=== PATIENT | female | born 1955 | race Caucasian/White ===

== ENCOUNTER 2020-04-07 15:39 | Outpatient (CLI) | payer OTHER, SELFPAY ==
--- NOTE | ~2020-04-07 | XR_ITS ---
XR chest 2V DATE: 04/07/2020 16:10 INDICATION: Shortness of breath, dyspnea. Mid chest pain. History of cardiomyopathy. TECHNIQUE: PA and lateral views COMPARISON: 08/10/2007 2 view chest FINDINGS: Bilateral hyperinflation. No pulmonary infiltrate or consolidation, pleural effusion or pul monary vascular congestion or pneumothorax. Mild bilateral apical capping. Normal heart size. Mild aortic tortuosity. No hilar or mediastinal enlargement. Status post lower anterior cervical spine surgical fusion. Diffuse osteopenia. IMPRESSION: Bilateral hyperinflation; no active cardiopulmonary disease Reviewed, dictated and finalized at location A.
[2020-04-07 16:23] LABS: Basophils Percent Auto 0.6 % (0.2-1.2); Eosinophils Absolute Auto 0.3 K/mm3 (0-0.3); Hematocrit 40.9 % (37.0-47.0); Hemoglobin 13.8 g/dL (12.0-15.0); Immature Granulocyte Absolute 0.01 K/mm3 (0.00-0.031); Immature Granulocyte Percent A 0.1 % (0-0.5); Lymphocytes Absolute Auto 2.88 K/mm3 (0.9-3.2); Lymphocytes Percent Auto 40.8 % (18.3-44.2); Mean Corpuscular HGB Conc 33.7 g/dl (32-36); Mean Corpuscular Hemoglobin 30.9 pg (26-34); Mean Corpuscular Volume 91.5 fl (80-100); Mean Platelet Volume 8.9 fl (7.4-10.4); Monocytes Absolute Auto 0.5 K/mm3 (0.1-0.6); Monocytes Percent Auto 7.1 % (2.6-8.5); Neutrophils Absolute Auto 3.4 K/mm3 (1.3-6.7); Neutrophils Percent Auto 47.4 % (45.5-73.1); Platelet Count Result 354 k/mm3 (150-375); Red Blood Count 4.47 M/mm3 (4.2-5.4); Red Cell Distribution Width 14.5 % (11.5-14.5); White Blood Count 7.1 K/mm3 (4.5-10.0)
[2020-04-07 16:37] LABS: Alanine Aminotransferase 19 U/L (4-35); Albumin Level 4.6 g/dL (3.5-5.1); Alkaline Phosphatase 57 U/L (38-126); Aspartate Amino Transferase 29 U/L (14-36); Bilirubin,Total 0.5 mg/dL (0.2-1.3); Blood Urea Nitrogen 8 mg/dL (7-17); Calcium 9.7 mg/dL (8.4-10.2); Carbon Dioxide 28 mmol/L (22-30); Chloride 103 mmol/L (98-107); Estimated Glomerular Filt Rate > 60; Glucose 94 mg/dL (65-105); Potassium 4.6 mmol/L (3.4-5.0); Sodium 135 mmol/L (137-145)
[2020-04-07 16:44] LABS: NT Pro B Type Natriuretic Pept 182 PG/ML (5-100)
== END 2020-04-07 15:40 | disposition home or self-care (01) ==
PROVIDERS: PCP Internal Medicine; Visit Provider Nurse Practitioner Adult Health
DX: R07.9 Chest pain, unspecified (principal); R06.02 Shortness of breath
CPT/HCPCS: 36415; 71046; 80053; 83880; 85025

== ENCOUNTER 2020-05-16 09:18 | Outpatient (CLI) | payer OTHER, SELFPAY ==
--- NOTE | ~2020-05-16 | DEXA_ITS ---
Bone Density Report Name: Magnolia Sigala Age: 65 Sex: Female Ethnicity: White Date of : 1955 Indication: postmenopausal; height loss; hysterectomy; Referring Provider: Tayla Morton Study: Bone densitometry was performed. Exam Date: May 16, 2020 Accession number: [id number] Bone Density: Region BMD T-score Z-score Classification AP Spine (L1-L4) 0.868 -1.6 0.0 Osteopenia Femoral Neck (Left) 0.690 -1.4 0.0 Osteopenia Total Hip (Left) 0.761 -1.5 -0.4 Osteopenia Total Hip Bilateral Avg 0.752 -1.6 -0.5 Osteopenia Femoral Neck (Right) 0.638 -1.9 -0.5 Osteopenia Total Hip (Right) 0.742 -1.6 -0.5 Osteopenia World Health Organization criteria for BMD impression classify patients as: Normal (T-score at or above -1.0), Osteopenia (T-score between -1.0 and -2.5), or Osteoporosis (T-score at or below -2.5). 10-year Fracture Risk(1): Major Osteoporotic Fracture 8.6% Hip Fracture 1.9% Reported Risk Factors: [place] (), Neck BMD=0.638, BMI=19.6, smoking (1) FRAX(R) Version 3.08. Fracture probability calculated for an untreated patient. Fracture probability may be lower if the patient has received treatment. Clinical Information Provided by Patient: Smokes Has used the following medications: HRT (i.e. estrogen/hormone therapy) Has the following medical conditions: Hysterectomy Patient maximum height was 68 Menopause Age: 45 Drinks caffeinated beverages Onset of menses at age 15 Number of children 1 Impression: The patient has low bone mass, based on the Right Femoral Neck T-score. The patient has an estimated ten-year risk of hip fracture of 1.9% and an estimated ten-year risk of major fracture of 8.6%, based on the WHO FRAX algorithm. The patient has risk factors, including: smoking. Discussion: BONE DENSITY IS LOW AT ONE OR MORE SKELETAL SITES. This patient's lowest T-score is low at one or more skeletal sites. It meets the World Health Organization's (WHO) criteria for ?low bone mass? (T-score between -1.0 and -2.5). The patient's 10-year risk of fracture as calculated by FRAX is less than the threshold where pharmacological therapy is recommended by the National Osteoporosis Foundation (NOF). However, all treatment decisions require clinical judgment and consideration of individual patient factors, including patient preferences, comorbidities, previous drug use, risk factors not captured in the FRAX model (e.g., frailty, falls, vitamin D deficiency, increased bone turnover, interval significant decline in bone density) and possible under or overestimation of fracture risk by FRAX. The patient should follow a healthful lifestyle (good nutrition with adequate calcium and vitamin D, and appropriate weight-bearing exercise). Follow-Up: Consider repeating this study in 2 to 3 years to reasses
--- NOTE | ~2020-05-16 | MM_ITS ---
EXAMINATION: MM screening [facility] BI w barry HISTORY: Screening mammogram TECHNIQUE: Craniocaudal and mediolateral oblique 3-D tomosynthesis images were obtained and synthetic 2-D images were generated. CAD analysis was submitted and interpreted. COMPARISON: 03/17/2019, 03/09/2018, 03/07/2017 BREAST PARENCHYMAL COMPOSITION: The breasts are extremely dense, which lowers the sensitivity of mamm ography. FINDINGS: There is no evidence of suspicious mass, calcification, or architectural distortion to sugg est malignancy in either breast. There has been no suspicious interval change. IMPRESSION: 1. No mammographic evidence of malignancy. 2. Recommend routine screening mammography in one year. BI-RADS Category 1: Negative Reviewed, dictated and finalized at location A.
== END 2020-05-16 09:19 | disposition home or self-care (01) ==
LOC: ANHIMG 09:20
PROVIDERS: PCP Internal Medicine; Visit Provider Obstetrics & Gynecology
DX: Z12.31 Encounter for screening mammogram for malignant neoplasm of breast (principal); Z78.0 Asymptomatic menopausal state; M85.89 Other specified disorders of bone density and structure, multiple sites
CPT/HCPCS: 77063; 77067; 77080

== ENCOUNTER 2021-05-22 10:19 | Outpatient (CLI) | payer OTHER, SELFPAY ==
--- NOTE | ~2021-05-22 | MM_ITS ---
EXAMINATION: MM screening [facility] BI w barry HISTORY: Screening TECHNIQUE: Craniocaudal and mediolateral oblique 3-D tomosynthesis images were obtained and synthetic 2-D images were generated. CAD analysis was submitted and interpreted. COMPARISON: Comparison to multiple prior studies sequentially, with oldest reviewed study dated 02/10. BREAST PARENCHYMAL COMPOSITION: The breasts are extremely dense, which lowers the sensitivity of mamm ography. FINDINGS: There is no evidence of suspicious mass, calcification, or architectural distortion to sugg est malignancy in either breast. There has been no suspicious interval change. IMPRESSION: 1. No mammographic evidence of malignancy. 2. Recommend routine screening mammography in one year. BI-RADS Category 1: Negative Reviewed, dictated and finalized at location A.
== END 2021-05-22 10:20 | disposition home or self-care (01) ==
LOC: ANHIMG 10:26
PROVIDERS: PCP Internal Medicine; Visit Provider Obstetrics & Gynecology
DX: Z12.31 Encounter for screening mammogram for malignant neoplasm of breast (principal)
CPT/HCPCS: 77063; 77067

== ENCOUNTER 2021-08-16 09:30 | Outpatient (CLI) | payer OTHER, SELFPAY ==
--- NOTE | ~2021-08-16 | XR_ITS ---
EXAMINATION: XR barium swallow modified EXAM DATE: 08/16/2021 10:07 INDICATION: Dysphagia. TECHNIQUE: Modified barium esophagram was performed by speech pathologist with radiologist Dr. Sean Kulkarni present to administered fluoroscopy. Speech pathologist administered barium in varying consis tencies as per speech pathologist documentation. This was recorded on tape. There was total fluorosc opic time of 0.9 minutes. The DAP for this procedure was 0.6 Gycm2. A total of 2 images sent to PAC S from the exam. FINDINGS: Oral stage: Adequate function. Pharyngeal phase: Adequate function. Laryngeal penetration: None. Aspiration: None. Laryngeal sensitivity: Present. IMPRESSION: Patient tolerated oral feedings in the upright position. Please refer to speech patholo gist findings and specific feeding recommendations. Reviewed, dictated and finalized at location A. IMPRESSION: Patient tolerated oral feedings in the upright position. Please r efer to speech pathologist findings and specific feeding recommendations.
--- NOTE | 2021-08-17 16:15 | STOPEVAL ---
MODIFIED BARIUM SWALLOW EVALUATION: Thank you for referring Magnolia Sigala to [facility].? Attending Provider: Aleyda Coreas Outpatient Past Medical History Past Medical History Source of Past Medical History Patient Gastrointestinal History Hx Gastroesophageal Reflux Disease Yes: on omeprazole Musculoskeletal History Hx Spinal Surgery Yes: hardware exhibited at C6/ 7;disc repair 20 years ago Prior Level of Function Prior Swallow Level Prior Intake Method Oral Prior Diet Regular (Level 7 Diet) Prior Liquid Consistency Thin (Level 0 Diet) Prior Cognition/Communication Prior Communication Level No Impairment Prior Cognitive Function Able to Function Independently Modified Barium Swallow Evaluation Recent Swallowing History Reports Dysphagia Yes: feels like its not going down / swollen throat ; denies choking Onset of Dysphagia 1 month Duration of Dysphagia 1 month Other Factors Impacting Dysphagia Head/Neck Surgery History of Pneumonia No Reported Difficult Consistencies Solids Intake Method Prior to Swallow Oral Evaluation Diet Prior to Swallow Evaluation Regular, Level 7 Liquid Consistency Prior to Swallow Thin (0) Evaluation Consistency Solid Consistency Method of Presentation Spoon Oral Preparatory Symptoms Within Functional Limits Oral Phase Symptoms Within Functional Limits Pharyngeal Phase Symptoms Within Functional Limits Severity of Vallecular Residue None - 0% No Residue Severity of Pyriform Sinus Residue None - 0% No Residue 8 Point Laryngeal Penetration-Aspiration Material Does Not Enter Airway Scale Cervical/Esophageal Symptoms Within Functional Limits Pureed Consistency Oral Preparatory Symptoms Within Functional Limits Oral Phase Symptoms Within Functional Limits Pharyngeal Phase Symptoms Within Functional Limits Severity of Vallecular Residue Trace - 1-5 % Trace Coating of the Mucosa Severity of Pyriform Sinus Residue Trace - 1-5 % Trace Coating of the Mucosa 8 Point Laryngeal Penetration-Aspiration Material Does Not Enter Airway Scale Pharyngeal Phase Comments the minimal pharyngeal residual was cleared with dry swallow Cervical/Esophageal Symptoms Esophageal/Pharyngeal Backflow Thin Uncontrolled 1 Other Amount cup and straw both used in testing thin liquids Oral Preparatory Symptoms Within Functional Limits Oral Phase Symptoms Within Functional Limits Pharyngeal Phase Symptoms Within Functional Limits Severity of Vallecular Residue None - 0% No Residue Severity of Pyriform Sinus Residue
== END 2021-08-16 09:31 | disposition home or self-care (01) ==
LOC: ANHIMG 09:33
PROVIDERS: PCP Internal Medicine
DX: R13.10 Dysphagia, unspecified (principal)
CPT/HCPCS: 92611

== ENCOUNTER 2022-06-12 15:26 | Outpatient (CLI) | payer OTHER, SELFPAY ==
--- NOTE | ~2022-06-12 | MM_ITS ---
EXAMINATION: MM screening [facility] BI w barry HISTORY: Screening mammogram TECHNIQUE: Craniocaudal and mediolateral oblique 3-D tomosynthesis images were obtained and synthetic 2-D images were generated. CAD analysis was submitted and interpreted. COMPARISON: 05/22/2021, 05/16/2020, 04/17/2019 BREAST PARENCHYMAL COMPOSITION: The breasts are extremely dense, which lowers the sensitivity of mamm ography. FINDINGS: There is no suspicious mass, calcification, or architectural distortion to suggest malignan cy in either breast. There has been no suspicious interval change. IMPRESSION: 1. No mammographic evidence of malignancy. 2. Recommend routine screening mammography in one year. BI-RADS Category 1: Negative Reviewed, dictated and finalized at location A.
== END 2022-06-12 15:27 | disposition home or self-care (01) ==
PROVIDERS: PCP Internal Medicine; Visit Provider Obstetrics & Gynecology
DX: Z12.31 Encounter for screening mammogram for malignant neoplasm of breast (principal)
CPT/HCPCS: 77063; 77067

== ENCOUNTER 2023-04-24 00:34 | Day surgery (SDC) | payer OTHER, SELFPAY ==
[2023-04-15 13:27] VITALS: BMI 19.1
--- NOTE | 2023-04-24 09:01 | WPDHPUPDATE1 ---
History and Physical Update Update Date/Time: 04/24/23 09:01 History and Physical has been reviewed, including an updated exam of the patient. There are NO changes in the patient's condition. Risks, benefits, and alternatives have been discussed and questions answered. Patient agrees to proceed with procedure.
[2023-04-24 09:02] VITALS: BP 115/71; PULSE 81; RESP 18; TEMP 36.4; O2SAT 100
[2023-04-24] MEDS: LACTATED RINGERS 1,000 ML 150 ML IV CONT (09:09)
--- NOTE | 2023-04-24 09:45 | WPDANESEPPF ---
Anes - Initial Pre Proc Eval Procedure: Operation Date: 04/24/23 10:00 Proposed Procedures p Esophagogastroduodenoscopy - Sebas Almazan MD Date/Time: 04/24/23 09:45 Surgeon: Sebas Almazan MD Pre Op Diagnosis: dysphagia, GERD Patient Data Age: 68 Gender: F Height: 1.73 m Weight: 57.1 kg Last Vital Signs Temp 97.5 F L 04/24/23 09:02 Pulse 81 04/24/23 09:02 Resp 18 04/24/23 09:02 BP 115/71 04/24/23 09:02 Pulse Ox 100 04/24/23 09:02 O2 Del Method Room Air 04/24/23 09:02 Allergies Allergy/AdvReac Type Severity Reaction Status Date / Time Penicillins Allergy Unknown Dizziness Verified 04/24/23 09:00 Home Medications Medication Instructions Recorded Confirmed Type zinc 50 mg tablet 50 mg PO DAILY 04/14/20 04/15/23 History omega-3 fatty acids 1,000 mg 1,000 mg PO DAILY 04/17/20 04/15/23 History capsule (Fish Oil Concentrate) cholecalciferol (vitamin D3) 25 25 mcg PO DAILY 04/23/21 04/15/23 History mcg (1,000 unit) capsule bupropion HCl 150 mg tablet,12 hr 150 mg PO BID #60 tabs 12/06/22 04/15/23 Rx sustained-release estradiol 1 mg tablet 1 mg PO DAILY #90 tabs 03/04/23 04/15/23 Rx calcium 500 mg tablet 500 mg PO DAILY 04/15/23 04/15/23 History carvedilol 12.5 mg tablet 12.5 mg PO Q12H 04/15/23 04/24/23 History dicyclomine 10 mg capsule 10 mg PO BID 04/15/23 04/15/23 History lisinopril 5 mg tablet 5 mg PO DAILY 04/15/23 04/15/23 History obafyoso-ucn-qcvgd ac 400 1 tablet PO DAILY 04/15/23 04/15/23 History mcg-calcium carb 500 mg-vit K1 20 mcg tablet omeprazole 40 mg capsule,delayed 40 mg PO DAILY #90 caps 04/17/23 Rx release Patient hx anesthesia problems: none Family hx anesthesia problems: none Results Review: All pre-operative results and documents have been reviewed as part of the pre-operative evaluation. [facility] Past Medical History Medical History Cardiovascular complication of procedure Diverticulitis Family history of other specified malignant neoplasm Surgical History Surgical History H/O hemorrhoidectomy History of gynecologic surgery SOPHIE/BSO - prolapse/bladder tie History of sinus surgery Family History Family History Mother Patient's mother is Family history of osteoporosis Family history of cardiovascular disease Father Patient's father is Diabetes mellitus Family history of aortic aneurysm Sibling Family history of arthritis Other Cerebrovascular accident Family history of malignant neoplasm Social History Social History Smoking packs per day: 0.5 Smoking cigarettes per day: 10.0 Years smoked: 45 Smoking pack-years: 22.50 Smoking status: Current every day smoker Tobacco type: cigarettes Second hand tobacco smoke exposure: No Smoking end date: 11/03/14 Alcohol intake: current Drinks per week: 2 Substance use: never Substance use type: does not use Living arrangements: alone Occupation/Education: retired Gender identity (if verbalized by the patient): Female Sexual Orientation (if Verbalized by the Patient): Straight or Heterosexual Spiritual care concerns: No Anes - Eval Final PreProcedure Day of Procedure 04/24/23 09:45 Patient weight: normal Heart: regular rate and rhythm Lungs: clear to auscultation Airway: Mallampati scale class II Neurological: alert and oriented Last oral intake: >/= 8 hours ASA classification: III Emergent: no Anesthetic plan: proceed Anesthesia type and monitoring: general GIVS and standard monitoring Results Review: All pre-operative results and documents have been reviewed as part of the pre-operative evaluation. Informed Consent: The patient's anesthetic plan and its attendant risks
[2023-04-24 09:57] VITALS: BP 110/64; PULSE 78; RESP 22; TEMP 36.4; O2SAT 100
[2023-04-24 10:07] VITALS: BP 117/78; PULSE 64; RESP 18; TEMP 36.4; O2SAT 100
[2023-04-24 10:17] VITALS: BP 122/69; PULSE 62; RESP 18; TEMP 36.4; O2SAT 100
== END 2023-04-24 10:20 | disposition home or self-care (01) ==
PROVIDERS: PCP Internal Medicine; Visit Provider Internal Medicine Gastroenterology
PROC: 0DJ08ZZ Inspection of Upper Intestinal Tract, Via Natural or Artificial Opening Endoscopic (ICD-10-PCS; CPT 43235; principal; 2023-04-24 10:00)
DX: R13.10 Dysphagia, unspecified (principal); K21.9 Gastro-esophageal reflux disease without esophagitis; F17.210 Nicotine dependence, cigarettes, uncomplicated
CPT/HCPCS: 43239; 43450; 87081; J2704; J7120

== ENCOUNTER 2023-05-12 11:24 | Emergency (ER) | payer OTHER, SELFPAY ==
[2023-05-12] VITALS (27 sets, daily range): BP systolic 104–144; BP diastolic 53–93; PULSE 55–75; RESP 12–26; TEMP 36.9; O2SAT 95–100
--- NOTE | ~2023-05-12 | XR_ITS ---
EXAMINATION: XR chest 2V DATE: 05/12/2023 11:57 INDICATION: Chest pain TECHNIQUE: PA and lateral views of the chest are obtained. COMPARISON: 04/07/2020 FINDINGS: The lungs are free of acute opacities. No pleural effusion or pneumothorax. The cardiomedia stinal silhouette is normal. There is mild thoracic spondylosis. There is partially imaged humeral pl ate and screw fixation. There are also partially imaged changes of anterior fusion in the lower cervi shilpi spine. IMPRESSION: 1. No acute cardiopulmonary abnormality. Reviewed, dictated and finalized at location B.
--- NOTE | 2023-05-12 11:32 | ECG_ITS ---
Measurements Intervals [place] Rate: 63 P: 52 SD: 180 QRS: 6 QRSD: 95 T: 60 QT: 395 QTc: 407 Interpretive Statements SINUS RHYTHM ANTEROSEPTAL INFARCT, AGE INDETERMINATE BORDERLINE ST ABNORMALITY- HIGH LATERAL CARLOS ABNORMAL ECG NO PREVIOUS ECG AVAILABLE FOR COMPARISON Electronically Signed On 05-12-2023 11:37:53 CDT by Madi Kang D.O.
[2023-05-12] MEDS: ASPIRIN 81 MG CHEWABLE TABLET 324 MG PO (11:44)
--- NOTE | 2023-05-12 11:45 | PC.NURSE ---
only gave 3 81 mg baby aspirin per MD stewart because patient took 81mg prior to arrival.
[2023-05-12 11:46] LABS: Basophils Absolute Auto 0.1 K/mm3 (0.0-0.1); Basophils Percent Auto 0.7 % (0.2-1.2); Eosinophils Absolute Auto 0.2 K/mm3 (0-0.3); Eosinophils Percent Auto 2.7 % (0-4.4); Hematocrit 38.6 % (37.0-47.0); Hemoglobin 13.1 g/dL (12.0-15.0); Immature Granulocyte Absolute 0.02 K/mm3 (0.00-0.031); Immature Granulocyte Percent A 0.3 % (0-0.5); Lymphocytes Absolute Auto 1.83 K/mm3 (0.9-3.2); Lymphocytes Percent Auto 24.9 % (18.3-44.2); Mean Corpuscular HGB Conc 33.9 g/dl (32-36); Mean Corpuscular Hemoglobin 31.8 pg (26-34); Mean Corpuscular Volume 93.7 fl (80-100); Mean Platelet Volume 8.7 fl (7.4-10.4); Monocytes Absolute Auto 0.5 K/mm3 (0.1-0.6); Monocytes Percent Auto 6.5 % (2.6-8.5); Neutrophils Absolute Auto 4.8 K/mm3 (1.3-6.7); Neutrophils Percent Auto 64.9 % (45.5-73.1); Platelet Count Result 328 k/mm3 (150-375); Red Blood Count 4.12 M/mm3 (4.2-5.4); Red Cell Distribution Width 14.4 % (11.5-14.5); White Blood Count 7.4 K/mm3 (4.5-10.0)
[2023-05-12 11:53] LABS: Alanine Aminotransferase 18 U/L (6-35); Albumin Level 4.2 g/dL (3.5-5.1); Alkaline Phosphatase 47 U/L (38-126); Anion Gap 3 mmol/L (8-16); Aspartate Amino Transferase 29 U/L (14-36); Bilirubin,Total 0.5 mg/dL (0.2-1.3); Blood Urea Nitrogen 11 mg/dL (7-17); Calcium 9.3 mg/dL (8.4-10.2); Carbon Dioxide 29 mmol/L (22-30); Chloride 104 mmol/L (98-107); Estimated CRCL calculation 70 ml/min; Estimated Glomerular Filt Rate > 60; Glucose 97 mg/dL (65-110); Lipase 144 U/L (23-300); Potassium 4.2 mmol/L (3.4-5.0); Sodium 136 mmol/L (137-145)
[2023-05-12 11:55] LABS: INR 0.9; Partial Thromboplastin Time 27.1 SECONDS (22.3-36.8); Prothrombin Time 12.7 Seconds (11.1-14.7)
[2023-05-12 12:04] LABS: Troponin I < 0.012 ng/mL (0.000-0.034)
[2023-05-12] MEDS: FAMOTIDINE 20 MG TABLET PO (12:36)
[2023-05-12] MEDS: BELLADONNA ALK/PHENOB ELIX 10 ML, MAG HYDROX/ALUMINUM HYD/SIMETH 30 ML, LIDOCAINE HCL 2... PO (12:37)
--- NOTE | 2023-05-12 13:34 | ED.CHESTPAIN ---
HPI - Chest Pain General Chief Complaint: Chest Pain Stated Complaint: chest pressure, nausea, left arm numbness Time Seen by Provider: 05/12/23 11:52 History of Present Illness HPI narrative: This is a 68-year-old female with past history of cardiomyopathy, who presents to the emergency department complaining of chest pressure, nausea and left arm numbness. She states the pressure is also related to the burning sensation, consistent with prior episodes of GERD and has not changed in intensity. She states nausea and some left arm numbness appeared in the past week. Patient denies any known aggravating or alleviating factors, shortness of breath or loss of consciousness. Related Data Home Medications Medication Instructions Recorded Confirmed zinc 50 mg tablet 50 mg PO DAILY 04/14/20 04/29/23 omega-3 fatty acids 1,000 mg 1,000 mg PO DAILY 04/17/20 04/29/23 capsule (Fish Oil Concentrate) cholecalciferol (vitamin D3) 25 25 mcg PO DAILY 04/23/21 04/29/23 mcg (1,000 unit) capsule calcium 500 mg tablet 500 mg PO DAILY 04/15/23 04/29/23 carvedilol 12.5 mg tablet 12.5 mg PO Q12H 04/15/23 04/29/23 dicyclomine 10 mg capsule 10 mg PO BID 04/15/23 04/29/23 lisinopril 5 mg tablet 5 mg PO DAILY 04/15/23 04/29/23 dhnemmbw-hus-injhi ac 400 1 tablet PO DAILY 04/15/23 04/29/23 mcg-calcium carb 500 mg-vit K1 20 mcg tablet Allergies Allergy/AdvReac Type Severity Reaction Status Date / Time Penicillins Allergy Unknown Dizziness Verified 05/12/23 11:39 Review of Systems Review of Systems: CONSTITUTIONAL: Denies fever, chills, or sweats. CARDIOVASCULAR: Burning midline chest pain denies palpitations, or edema. RESPIRATORY: Denies cough or dyspnea. GASTROINTESTINAL: Nausea denies abdominal pain, vomiting, or diarrhea. GENITOURINARY: Denies dysuria or hematuria. SKIN: Denies rash or itching. MUSCULOSKELETAL: Denies back pain, joint pain, or myalgia. NEUROLOGIC: Chronic left arm numbness denies headache, dizziness, or weakness. PSYCHIATRIC: Denies anxiety or depression. [facility] Past Medical History Medical History (Updated 05/12/23 @ 15:05 by Giorgio Stallworth MD) Cardiovascular complication of procedure Diverticulitis Family history of other specified malignant neoplasm Surgical History Surgical History H/O endoscopy H/O hemorrhoidectomy History of gynecologic surgery SOPHIE/BSO - prolapse/bladder tie History of sinus surgery Family History Family History Mother Patient's mother is Family history of osteoporosis Family history of cardiovascular disease Father Patient's father is Diabetes mellitus Family history of aortic aneurysm Sibling Family history of arthritis Other Cerebrovascular accident Family history of malignant neoplasm Social History Social History Smoking packs per day: 0.5 Smoking cigarettes per day: 10.0 Years smoked: 45 Smoking pack-years: 22.50 Smoking status: Current every day smoker Tobacco type: cigarettes Second hand tobacco smoke exposure: No Smoking end date: 11/03/14 Alcohol intake: current Drinks per week: 2 Substance use: never Substance use type: does not use Lack of Transportation: No Lack of Food: Never True Current Housing: I Have Housing Concerned About Future Housing: No Difficulty Paying Gas/Electric Bills: No Difficulty Paying for Meds: No Currently Unemployed: No Education: Associate Degree Difficulty w/ Childcare or Family Care: No Living arrangements: alone Occupation/Education: retired Gender identity (if verbalized by the patient): Female Sexual Orientation (if Verbalized by the Patient): Straight or Heterosexual Spiritual care concerns: No Exam Narrative: GENERAL: Well-developed, well-nourished, and in no acute d
[2023-05-12 14:21] LABS: NT Pro B Type Natriuretic Pept 429 pg/mL (19.9-100)
[2023-05-12 14:49] LABS: Troponin I < 0.012 ng/mL (0.000-0.034)
== END 2023-05-12 15:15 | disposition home or self-care (01) ==
PROVIDERS: Emergency Provider Preventive Medicine Aerospace Medicine; PCP Internal Medicine
DX: K21.9 Gastro-esophageal reflux disease without esophagitis (principal); R07.89 Other chest pain; F17.210 Nicotine dependence, cigarettes, uncomplicated
CPT/HCPCS: 36415; 71046; 80053; 83690; 83880; 84484; 85025; 85610; 85730; 93005; 99284; A9270

== ENCOUNTER → 2023-08-08 12:27 | Outpatient (CLI) | payer OTHER, SELFPAY ==
--- NOTE | ~2023-08-08 | MM_ITS ---
EXAMINATION: MM screening [facility] BI w barry HISTORY: Screening mammogram TECHNIQUE: Craniocaudal and mediolateral oblique 3-D tomosynthesis images were obtained and synthetic 2-D images were generated. CAD analysis was submitted and interpreted. COMPARISON: 06/12/2022, 05/22/2021, 05/16/2020 BREAST PARENCHYMAL COMPOSITION: The breasts are extremely dense, which lowers the sensitivity of mamm ography. FINDINGS: No suspicious mass, calcification, or architectural distortion are identified in either carole ast to suggest malignancy. There has been no suspicious interval change. IMPRESSION: 1. No mammographic evidence of malignancy. 2. Recommend routine screening mammography in one year. BI-RADS Category 1: Negative Reviewed, dictated and finalized at location A.
--- NOTE | ~2023-08-08 | DEXA_ITS ---
Bone Density Report Name: UZIEL FOSTER Age: 68 Sex: Female Ethnicity: White Date of : 1955 Indication: postmenopausal; screening for osteoporosis; hysterectomy; Referring Provider: Tayla Morton Study: Bone densitometry was performed. Exam Date: August 08, 2023 Accession number: [id number] Bone Density: Region BMD T-score Z-score Classification AP Spine (L1-L4) 0.890 -1.4 0.4 Osteopenia Femoral Neck (Left) 0.690 -1.4 0.2 Osteopenia Total Hip (Left) 0.763 -1.5 -0.2 Osteopenia Femoral Neck (Right) 0.654 -1.8 -0.2 Osteopenia Total Hip (Right) 0.732 -1.7 -0.4 Osteopenia Total Hip Mean 0.748 -1.6 -0.3 Osteopenia World Health Organization criteria for BMD impression classify patients as: Normal (T-score at or above -1.0), Osteopenia (T-score between -1.0 and -2.5), or Osteoporosis (T-score at or below -2.5). 10-year Fracture Risk(1): Major Osteoporotic Fracture 8.7% Hip Fracture 2.0% Reported Risk Factors: [place] (), Neck BMD=0.654, BMI=19.1, smoking (1) FRAX(R) Version 3.08. Fracture probability calculated for an untreated patient. Fracture probability may be lower if the patient has received treatment. Clinical Information Provided by Patient: Smokes Has used the following medications: HRT (i.e. estrogen/hormone therapy), Vitamin D, Calcium, MTV Has the following medical conditions: Hysterectomy Patient maximum height was 68.0 Menopause Age: 45 No regular weight bearing exercise Drinks caffeinated beverages Onset of menses at age 15 Number of children 1 Impression: The patient has low bone mass, based on the Right Femoral Neck T-score. The patient has an estimated ten-year risk of hip fracture of 2% and an estimated ten-year risk of major fracture of 8.7%, based on the WHO FRAX algorithm. The patient has risk factors, including: smoking. Discussion: BONE DENSITY IS LOW AT ONE OR MORE SKELETAL SITES. This patient's lowest T-score is low at one or more skeletal sites. It meets the World Health Organization's (WHO) criteria for ?low bone mass? (T-score between -1.0 and -2.5). The patient's 10-year risk of fracture as calculated by FRAX is less than the threshold where pharmacological therapy is recommended by the National Osteoporosis Foundation (NOF). However, all treatment decisions require clinical judgment and consideration of individual patient factors, including patient preferences, comorbidities, previous drug use, risk factors not captured in the FRAX model (e.g., frailty, falls, vitamin D deficiency, increased bone turnover, interval significant decline in bone density) and possible under or overestimation of fracture risk by FRAX. The patient should follow a healthful lifestyle (good nutrition with adequate calcium and vitamin D, and appropriate weight-bearing exer
== END ==
PROVIDERS: PCP Obstetrics & Gynecology; Visit Provider Obstetrics & Gynecology
DX: Z12.31 Encounter for screening mammogram for malignant neoplasm of breast (principal); M85.89 Other specified disorders of bone density and structure, multiple sites
CPT/HCPCS: 77063; 77067; 77080

== ENCOUNTER 2024-04-26 13:57 | Outpatient (CLI) | payer OTHER, SELFPAY ==
--- NOTE | ~2024-04-26 | XR_ITS ---
EXAMINATION: XR_[id number]_CR DATE: 04/26/2024 14:18 INDICATION: Left shoulder pain radiating to the fingers. TECHNIQUE: 4 views of cervical spine were obtained. COMPARISON: None. FINDINGS: There is kyphosis of cervical spine. There is 6 degrees levocurvature of cervicothoracic sp ine. Vertebral body heights are normal. There is moderately decreased disc height at C5-C6. There are changes of anterior fusion procedure at C6-C7 with healed interbody bone graft and anterior plate an d screws. There is multilevel aqoc-iw-zalfsvhm facet joint osteoarthritis. No central canal stenosis or prevertebral soft tissue swelling. IMPRESSION: 1. Moderate cervical spondylosis. 2. Anterior fusion procedure at C6-C7. Reviewed, dictated and finalized at location A.
--- NOTE | ~2024-04-26 | XR_ITS ---
EXAMINATION: XR shoulder LT min 2V DATE: 04/26/2024 14:18 INDICATION: Left shoulder pain. TECHNIQUE: 4 views of left shoulder were obtained. COMPARISON: None. FINDINGS: Bone alignment is normal. No fracture. There is mild osteoarthritis of glenohumeral joint a nd acromioclavicular joint. There are changes of anterior fusion procedure in cervical spine. IMPRESSION: 1. Mild polyarticular osteoarthritis. Reviewed, dictated and finalized at location A.
== END 2024-04-26 13:58 | disposition home or self-care (01) ==
PROVIDERS: PCP Internal Medicine; Visit Provider Internal Medicine
DX: M19.012 Primary osteoarthritis, left shoulder (principal); M47.892 Other spondylosis, cervical region; Z98.1 Arthrodesis status
CPT/HCPCS: 72040; 73030

== ENCOUNTER 2024-07-09 12:30 | Outpatient (RCR) | payer OTHER, SELFPAY ==
--- NOTE | 2024-05-19 17:40 | PTOPEVAL1 ---
Assessment and note entered by Heaven Jacobs, PT Evaluation Information Assessment Status Evaluation ICD-10 Condition Codes (PT) M25.511,M25.512 Subjective Information Pt. nicholas have been doing housework, renovations , painting and moving furniture around since moving to her house in October 2023. States she was feeling sore for a while but pain seem to persist in the L shoulder and started to radiate to L arm, recently noticing more of weakness and inability to lift heavy objects that started 3-4 months ago. Pt is L handed and reports is deliberately limiting her activities at home due to anticipating increased pain with movement. Reported Pain Level Pain Score 2: Self Report Additional Pain Score Comments morning stiffness; sore at the end of the day Assessment PT Clinical Summary Pt is a 69yo female patient who presents to therapy with L shoulder pain which radiates down to her L arm and hand. 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 Pt. demos increased tightness to B traps muscles L > R, ROM limitations to cervical spine, weakness and radicular symptoms to LUE down to the fingertips, gait affectation and significant reduction in functional mobility. She would greatly benefit from skilled PT to address deficits, reduce pain and improve quality of life. Plan of Care Interventions Electrical Stimulation,Hot Pack/Cold Pack,Manual Therapy,Mechanical Traction,Neuro Re-education, Patient/Caregiver Education,Therapeutic Activities, Therapeutic Exercise,Ultrasound PT Services Indicated Yes Treatment Frequency and 2x/wk x 10 visits Duration These treatments will address the objective and functional deficits as defined above. The patient will be advanced safely and appropriately in order for the patient to progress towards his/her prior level of function. Additional exercises will be introduced and as well as a comprehensive home exercise program upon discharge, if needed, ?to ensure carryover of functional gains achieved in the clinic. This treatment plan has been reviewed and agreement upon by the patient.
--- NOTE | 2024-05-19 17:41 | PTOPEVAL1 ---
Assessment and note entered by Heaven Jacobs, PT Evaluation Information Assessment Status Evaluation ICD-10 Condition Codes (PT) M25.511,M25.512 Subjective Information Pt. reports have been doing housework, renovations , painting and moving furniture around since moving to her house in October 2023. States she was feeling sore for a while but pain seem to persist in the L shoulder and started to radiate to L arm, recently noticing more of weakness and inability to lift heavy objects that started 3-4 months ago. Pt is L handed and reports is limiting her activities at home deliberately due to the pain. Reported Pain Level Pain Score 2: Self Report Additional Pain Score Comments morning stiffness; sore at the end of the day Assessment PT Clinical Summary Pt is a 69yo female patient who presents to therapy with L shoulder pain which radiates down to her L arm and hand. 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 Pt. demos increased tightness to B traps muscles L > R, ROM limitations to cervical spine, weakness and radicular symptoms to LUE down to the fingertips, gait affectation and significant reduction in functional mobility. She would greatly benefit from skilled PT to address deficits, reduce pain and improve quality of life. Plan of Care Interventions Electrical Stimulation,Hot Pack/Cold Pack,Manual Therapy,Mechanical Traction,Neuro Re-education, Patient/Caregiver Educati,Therapeutic Activities, Therapeutic Exercise,Ultrasound PT Services Indicated Yes Treatment Frequency and 2x/wk x 10 visits Duration These treatments will address the objective and functional deficits as defined above. The patient will be advanced safely and appropriately in order for the patient to progress towards his/her prior level of function. Additional exercises will be introduced and as well as a comprehensive home exercise program upon discharge, if needed, ?to ensure carryover of functional gains achieved in the clinic. This treatment plan has been reviewed and agreement upon by the patient.
--- NOTE | 2024-07-09 13:20 | PTOPDC ---
Assessment and note entered by Yesenia Merlos, PT Discharge Report Assessment Status Discharge ICD-10 Condition Codes (PT) M25.511,M25.512 Subjective Information shoulder is better; doing the exercises at home; am ready to be done with therapy. Reported Pain Level Pain Score Self Report Additional Pain Score Comments pain range in the past week 0-3/10; up to 3 with vacuuming; Assessment PT Clinical Summary [facility] has received a total of 11 PT sessions. Compared to the initial evaluation: pain range from 2-8/10 to 0-3/10; does not have any radicular pain into L UE; does not have any cervical pain and cervical ROM is WNL and without pain; increase strength of L shoulder: flexion with 5# hand weight and abduction with 4# hand weight x 5 reps through full ROM; able to carry 10# with L hand and walk 50'; education completed for HEP and posture/body mechanics. The goals were achieved. Discharge PT services. She is to continue with her HEP. Plan of Care PT Services Indicated No
== END 2024-07-09 14:12 | disposition home or self-care (01) ==
LOC: ANHPT 12:30
PROVIDERS: PCP Internal Medicine; Visit Provider Internal Medicine
DX: M25.512 Pain in left shoulder (principal)
CPT/HCPCS: 97035; 97110; 97140; 97161; 97530

== ENCOUNTER 2024-08-12 12:34 | Outpatient (CLI) | payer OTHER, SELFPAY ==
--- NOTE | ~2024-08-12 | MM_ITS ---
EXAMINATION: MM screening lance BI w barry HISTORY: Screening TECHNIQUE: Craniocaudal and mediolateral oblique 3-D tomosynthesis images were obtained and synthetic 2-D images were generated. CAD analysis was submitted and interpreted. COMPARISON: Comparison to multiple prior studies sequentially, with oldest reviewed study dated 05/2018. BREAST PARENCHYMAL COMPOSITION: Dense: The breasts are extremely dense, which lowers the sensitivity of mammography. FINDINGS: There is no evidence of suspicious mass, calcification, or architectural distortion to sugg est malignancy in either breast. There has been no suspicious interval change. IMPRESSION: 1. No mammographic evidence of malignancy. 2. Recommend routine screening mammography in one year. BI-RADS Category 1: Negative Reviewed, dictated and finalized at location B.
== END 2024-08-12 12:35 | disposition home or self-care (01) ==
LOC: MICIMG 12:35
PROVIDERS: PCP Obstetrics & Gynecology; Visit Provider Obstetrics & Gynecology
DX: Z12.31 Encounter for screening mammogram for malignant neoplasm of breast (principal)
CPT/HCPCS: 77063; 77067

== ENCOUNTER 2025-01-28 12:54 | Outpatient (CLI) | payer OTHER, SELFPAY ==
--- OUTSIDE RECORDS SUMMARY | 2025-01-28 13:04 | XMS_ITS | Encounter Summary ---
Author Organization [facility] Address [address] [place] [address] Care Team Providers Care French Professor Name Role Phone Jacek Thomas MD Primary Care Provider [phone] Jacek Thomas MD Primary Care Provider [phone] Encounter Details Date Type Department Care Team (Late st Contact Info) Description 01/03/2017 Orders Only [facility] ProviderVern MD [address] [place], [place] [id number] Social History Tobacco Use Types Packs/Day Years Used Date Smoking Tobacco: Every Day Alcohol Use Standard Drinks/Week Comments Yes 0 (1 standard drink = 0.6 oz pur e alcohol) Comments Unknown Sex and Gender Information Value Date Recorded Sex Assigned at Not on file Legal Sex Female 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 Historical Provider [facility] Final Result documented in this encounter Visit Diagnoses Not on filedocumented in this encounter Care Teams French Professor Relationship Specialty Start Date End Date Jacek Thomas MD [address] [place] [address] PCP - General 01/31/17 Jacek Thomas MD [address] [place] [address] PCP - General 05/25/15 01/30/17 documented as of this encounter
--- OUTSIDE RECORDS SUMMARY | 2025-01-28 13:04 | XMS_ITS | Continuity of Care Document ---
Author [facility] [address] [place] [id number] Phone Care Team Providers Care Labeler Name Role Phone Gian Duenas MD Unavailable Unavailable Allergies, Adverse Reactions, Alerts Substance Reaction Status Criticality PENICILLIN Active No Information Penicillins Active No Information Medications Medication Instructions Dosage Effective Dates (start - stop) Status Comments zinc 50 mg tablet take 1 tablet by ora l route every day - Active estradiol 1 mg tablet take 1 tablet by o ral route every day 1 MG - Active carvedilol 12.5 mg tablet take 1 tablet by oral route 2 times every day with food 12.5 MG - Active lisinopril 5 mg tablet take 1 tablet by oral route every day 5 MG - Active pantoprazole 40 mg tablet,delayed release take 1 tablet by oral route every day 40 MG - Active Viberzi 100 mg tablet take 1 tablet by o ral route 2 times every day 100 MG - Active Estradiol 0.01% (0.1 mg/g) Vaginal Cream insert (1G) by VAGINAL route every week 1 G - Active Omeprazole 10 mg Cap, Delayed Release take 2 capsule (20MG) by ORAL route every day before a meal 20 MG - Active Procedures Procedure Date No Charge Refraction After Cataract Laser Surgery Post-op Follow-up Visit No Charge Refraction After Cataract Laser Surgery Eye Exam & Treatment No Charge Refraction Post-op Follow-up Visit Post-op Follow-up Visit Remove Cataract, Insert Lens Laser Cataract SX Standard No Charge Refraction Post-op Follow-up Visit Post-op Follow-up Visit Remove Cataract, Insert Lens Laser Cataract SX Standard No Charge Optomap Fundus Photos 018 No Charge Refraction IOLMaster No Charge Orbscan IOLMaster Office/outpatient Visit, New SCODI, Anterior Segment Office/outpatient Visit, Est Office/outpatient Visit, Est Post-op Follow-up Visit Revise Two Eye Muscles Post-op Follow-up Visit Office/outpatient Visit, Est Advance Directives Directive Yes / No Effective Date File Name No Information Encounters Encounter Description Practice Location Reason(s) For Visit Diagnoses Date Provider Providers Copied on Encounter [facility], [address] [place] [address] [address], [place], [place], [id number], [place] tel:[phone] SEC Go BRITTON Professional No Information 0 Henrique Springer. [address] [place], [address], [place]. tel:[phone] [facility], [address], [place], [place], [address], [place] tel:[phone] SEC Go BRIT[place] Professional yag pc OD (chief complaint) Encounter for examination following surgeryOther secondary cataract, right eye 0 Henrique Springer. [address], [place], [place], [address], [place]. tel:[phone] Referring Provider: Martin Lai OD F, [address], [place], [address]. tel:[phone] [facility], [address], [place], [place], [address], [place] [phone] SEC [place] REBA Professional Complete Exam (chief complaint) Presence of intraocular lensOther secondary cataract, right eyeOther secondary cataract, left eyePunctate keratitis, bilateral Dec- 5-202 0 Henrique Springer. [address] [facility], [place], [place], [address], [place]. tel:[phone] Referring Provider: Martin Lai OD F, [address], [place], [address]. tel:[phone] [facility], [address], [place], [place], [id number], [place] [phone] SEC [place] REBA Professional 2 week s/p PCIOL w/LensAR (NEAR) (chief complaint) Encounter for examination following surgery 8 Roosevelt Reed. [address] [facility], [address], [place], [address], [place]. tel:[phone] Referring Provider: Martin Lai OD F, [address], [place], [address]. tel:[phone] [facility], [address], [place], [place], [address], [place] [phone] SEC [place] Professional 1 day p/o PCIOL w/ LensAR (chief complaint) Encounter for examination following surgery 0 8 Henrique Springer. [address] [facility], [place], [place], [address], [place]. tel:[phone] Referring Provider: Martin Lai OD F, [address], [place], [address]. tel:[phone] [facility], [address], [place], [place], [address], [place] [phone] [facility] No Information 8 Ara Esquivel. [address] [place] [address] [email or web address], [address], [place], [place], [address], [place]. tel:[phone] Referring Provider: Martin Lai OD F, [address], [place], [address]. tel:[phone] [facility], [address] [place] [address] [address], [place], [place], [address], [place] tel:[phone] SEC Go [place] Professional 2 week s/p PCIOL w/LensAR (chief complaint) Encounter for examination following surgery 8 Henrique Springer. [address] [place] [address] [address], [place], [place], [address], [place]. tel:[phone] Referring Provider: Martin Lai OD F, [address], [place], [address]. tel:[phone] [facility], [address] [place] [address] [address], [place], [place], [address], [place] tel:[phone] SEC [place] Professional Post-Op (chief complaint) No Information 8 Roosevelt BAH Brianna. [address] [facility], [place], [place], [facility], [place]. tel:[phone] Referring Provider: Martin Lai OD F, [address], [place], [address]. tel:[phone] [facility], [address] [place] [address] [address], [place], [place], [address], [place] tel:[phone] [place] [facility] No Information 8 Ara Esquivel. [address] [place] [address] [email or web address] [facility], [address], [place], [place], [address], [place]. tel:[phone] Referring Provider: Martin Lai OD F, [address], [place], [address]. tel:[phone] Office/outpa tient Visit, [facility], [address] [place] [address] [address], [place], [place], [address], [place] tel:[phone] SEC Go BRITTON Professional Cataract evaluation (chief complaint) No Information March-0 8-201 8 Ciales Alvin. [facility], [address], [place], [place], [address], [place]. tel:[phone] Referring Provider: Martin Lai OD F, [address], [place], [address]. tel:[phone] [facility], [address] [place] [address] [address], [place], [place], [address], [place] tel:[phone] SEC Allie Burns No Information 3 0-201 3 Ciales Alvin. [facility] [address], [address], [place], [place], [address], [place]. tel:[phone] Office/outpa tient Visit, Est [facility], [address] [place] [address] [address], [place], [place], [address], [place] tel:[phone] SEC Go REBA Professional blurry vision (chief complaint) CONJUNCTIVA DISORDER NECANATOMICAL NARROW ANGLE 4-201 3 Ara Alvin. [facility] [address], [address], [place], [place], [address], [place]. tel:[phone] Office/outpa tient Visit, Est [facility], [address] [place] [address] [address], [place], [place], [address], [place] tel:[phone] SEC [facility] No Information Aug-0 3-200 [address], [place], [address], [place]. tel:[phone] [facility], [address] [place] [address] [address], [place], [place], [address], [place] tel:[phone] [facility] No Information Sincere-0 6-200 7 Mckinnon Cheryl. [address], [place], [place], [facility], [place]. tel:[phone] [facility], [address] [place] [address] [address], [place], [place], [address], tel:[phone] [facility] No Information Apr-2 6-200 [address] , [address], [place], [place], [facility], [place]. tel:[phone] [facility], [address] [place] [address] [address], [place], [place], [address], tel:[phone] [facility] No Information 2 200 [address] , [address], [place], [address], . tel:[phone] Office/outpa [place]ient Visit, [facility] [address] [place] [address] [address], [place], [place], [address], tel:[phone] [facility] No Information March-[address] [facility] , [address], [place], [address], [place]. tel:[phone] Family History Family Member Type Diagnosis Age At Onset Father Problem (finding) diabetes melli tus in first degree relative Payers Payer name Insurance type Covered alliance party ID Tomasa henderson(s) [facility] Commercial CI [id number] Social History Type Description Quantity Date Captured Comments Alcohol Use Details Unknown Caffeine Use Details Unknown Tobacco Use Status Smoking Status No Information Sex Female Chief Complaint And Reason For Visit No Information Reason For Referral Reason For Referral No Information Plan Of Treatment Date Type Action Status Goal Tobacco cessation counseling completed Goal Tobacco cessation counseling completed Patient Education Learning About YAG Lase r Capsulotomy completed Patient Education Cataracts: Care Instruc tions completed History Of Present Illness Encounter Date Complaint History Of Prese nt Illness yag pc OD The 64 year old female presents for a YAG PC OD and a 3 week post op yag pc OS. Patient states vision OS is better. OS is set for NV. Patient states harder to recognize peoples faces from across the street and harder to read small print. Complete Exam The 64 year old female presents for evaluation of Complete Exam in the right eye and left eye. HX of PCIOL w/LensAR OU (OS set for NV), LUDA OU, and Strabismus Sx OU. Pt reports she has trouble driving at night due to decreased vision, trouble recognizing people's faces from across the street, and trouble reading small print, OU, x 1 mo. Pt reports she uses AFT 9-10 x a day and OS>OD, feels dry, intermittent, x long time, worse in winter time. 2 week s/p PCIOL w/LensAR (NEAR) The 63 year old female presents for evaluation of 2 week s/p PCIOL w/LensAR (NEAR) in the left eye. Patient states VA is pretty good. She is almost finished with gtts. 1 day p/o PCIOL w/ LensAR The 63 year old female presents for evaluation of 1 day p/o PCIOL w/ LensAR (NEAR) in the left eye. Va seems pretty good. Patient did not bring gtts in tech instructed patient on use Of Pred and poly and use of eye shield. 2 week s/p PCIOL w/LensAR The 63 year old female presents for evaluation of 2 week s/p PCIOL w/LensAR in the right eye. Patient states VA is improving but nor PERFECT. Patient using p/o gtts as instructed. c/o with left eye is difficulty seeing at night due to glare. Post-Op The 63 year old female presents for a 1 day post op CE OD. Patient is using Pred and Poly qid OD. Patient denies any pain or discomfort. Cataract evaluation The 62 year old female presents for a cataract evaluation ou per Dr. Martin Lai. Patient wears monovision contacts. Patient states OD is for distance and OS is for close up. Patient c/o vision is just awful . Patient c/o glare at night when driving and seldom drives at night because of glare. Patient c/o she has dry eyes and uses refresh. Functional Status Date Functional Assessmen t No Information Instructions Date Instruction Additional Infor beverley Impression/Plan Impression/Plan Impression/Plan Impression/Plan Impression/Plan Impression/Plan Impression/Plan ANATOMICAL NARROW AN GLE, OU - Discussed dx with pt, may present a problem in the future. 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 Probably involving medical rectus. rec seeing a strasbismus surgery, Refer to Dr. Simons, Dr. Boland, or Dr. Dutta for eval and treatment.Letter dictated to Dr. Lai Related to CONJUNCTIVA DISORDER NEC - sched OCT of AC Related to MAXIMO TOMICAL NARROW ANGLE Assessments Type Assessment Date No Information Patient Care Teams Name Effective Dates (start - stop) Status Members No Information
--- OUTSIDE RECORDS SUMMARY | 2025-01-28 13:04 | XMS_ITS | Referral Summary ---
Author Organization [facility] [place] [address] Address [address] [place] [address] Care Team Providers Care Claims Administrator Name Role Phone Jacek Thomas MD Primary Care Provider [phone] Allergies Active Allergy Reactions Criticality Noted Date Comments Penicillins Hives,Syncope High Medications estradiol (ESTRACE) 1 mg tablet take 1 tablet by oral route every day 0 0 05/15/20 15 Active inulin-sorbitol (FIBER SUPPLEMENT, INULIN,) 2 gram tablet,chewable take one by mouth once daily 0 0 01/11/20 17 Active Additional Information Patient taking differently: 1 tablet 2 times daily, Reported on 10/11/2024 omega 6-ocs-ngt-fish oil (FISH OIL) 1,000 mg (120 mg-180 mg) capsule take 1 by Oral route once 0 0 01/11/20 17 Active zinc 50 mg tablet take 1 by Oral route once 0 0 01/11/20 17 Active multivitamin tablet tablet take 1 tablet by oral route every day with food 0 0 01/11/20 17 Active dicyclomine (BENTYL) 20 mg tablet Take 0.5 tablets (10 mg total) by mouth 2 (two) times a day 01/03/20 20 Active Viberzi 100 mg tablet Take 0.5 tablets (50 mg total) by mouth 2 (two) times a day 03/18/20 20 Active omeprazole (PriLOSEC) 40 mg capsule Take by mouth daily 02/02/20 21 Active buPROPion SR (WELLBUTRIN SR) 150 mg 12 hr tablet Take 1 tablet (150 mg total) by mouth 2 (two) times a day 03/14/20 22 Active lisinopriL (PRINIVIL,ZESTRIL) 5 mg tabletIndications: Dilated cardiomyopathy (HCC) TAKE 1 TABLET BY MOUTH EVERY DAY 90 tablet 1 06/02/20 24 Active carvediloL (COREG) 12.5 mg tablet TAKE 1 TABLET BY MOUTH TWICE A DAY WITH FOOD 180 tablet 1 06/02/20 24 Active Active Problems Problem Noted Date Diagnosed Date Chest pressure 05/27/2023 Tobacco use 04/22/2022 Family history of sudden cardiac 9 Family history of cardiomyopathy 01/10/2017 Overview (03/28/2017): Family history of sudden cardiac in mother Chronic fatigue syndrome 07/04/2016 Overview (02/06/2017): Chronic fatigue Cardiomyopathy 07/24/2015 Overview (02/06/2017): NICM (nonischemic cardiomyopathy) Dyspnea on exertion 05/15/2015 Overview (02/06/2017): ROA (dyspnea on exertion) Current smoker 05/15/2015 Overview (02/06/2017): Smoker Social History Tobacco Use Types Packs/Day Years Used Date Smoking Tobacco: Every Day Cigarettes 0.5 30 Smokeless Tobacco: Never Tobacco Cessation:Ready to Q uit: Yes; Counseling Given: Not Answered Alcohol Use Standard Drinks/Week Comments Yes 0 (1 standard drink = 0.6 oz pur e alcohol) Comments Unknown Sex and Gender Information Value Date Recorded Sex Assigned at Not on file Legal Sex Female 8:04 PM ETHYL BLENDER Gender Identity Not on file Sexual Orientation Not on file Last Filed Vital Signs Vital Sign Reading Time Taken Comments Blood Pressure 108/78 10/11/2024 2:08 PM ETHYL BLENDER Pulse 70 10/11/2024 2:08 PM ETHYL BLENDER Temperature - - Respiratory Rate - - Oxygen Saturation 94% 10/11/2024 2:08 PM ETHYL BLENDER Inhaled Oxygen Concentration - - Weight 55.8 kg (123 lb) 10/11/2024 2:08 PM ETHYL BLENDER Height 170.2 cm (5' 7 ) 10/11/2024 2:08 PM ETHYL BLENDER Body Mass Index 19.26 10/11/2024 2:08 PM ETHYL BLENDER Plan of Treatment Not on [place] [address] [place] [address] [address] [place] [address] HEALTHCARE Care Teams Claims Administrator Relationship Specialty Start Date End Date Jacek Thomas MD [address] [place] [address] PCP - General 01/31/17
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
== END 2025-01-28 12:55 | disposition home or self-care (01) ==
LOC: ANHAUDASC 12:55
PROVIDERS: PCP Internal Medicine; Visit Provider Internal Medicine
DX: H91.90 Unspecified hearing loss, unspecified ear (principal)
CPT/HCPCS: 92557; 92567